=== PATIENT | female | born 1990 | race Caucasian/White ===

== ENCOUNTER 2017-05-12 22:46 | Emergency (ER) | payer OTHER ==
[2017-05-12] MEDS ORDERED: IPRATROPIUM-ALBUTEROL 3 ML NEB INHALATION STA (23:09)
[2017-05-12] MEDS ORDERED: predniSONE 20 MG TAB PO STA (23:09)
--- NOTE | 2017-05-12 23:18 | ED ---
General Adult HPI - General Chief complaint: Upper Respiratory Infection Stated complaint: TIMMY Time Seen by Provider: 05/12/17 22:59 Source: patient, RN notes reviewed Mode of arrival: ambulatory Limitations: no limitations - History of Present Illness Initial comments: Light and history of present illness this is a 27-year-old female here with complaint of bronchial asthma. Patient reports that she was treated with prednisone and amoxicillin several weeks ago. Several updrafts prior to coming in. The patient is breast-feeding. She states that her [employer] sent low-dose prednisone's okay while breast-feeding. We've her. No productive cough. [facility] and the day before and was reported to be negative by patient. - Related Data Home Medications Medication Instructions Recorded Confirmed Iln-Vckg-Rzuou Acid 1 each PO DAILY 11/15/13 11/17/13 [-U Capsule] Previous Rx's Medication Instructions Recorded predniSONE 10 mg PO DAILY #5 tab 05/12/17 Allergies Allergy/AdvReac Type Severity Reaction Status Date / Time No Known Allergies Allergy Verified 05/12/17 22:50 Review of Systems ROS Statement: Those systems with pertinent positive or pertinent negative responses have been documented in the HPI. reView of systems patient denies any visual acuity changes no sore throat no headache no chest pain she is short of breath from asthma-type symptoms. Currently no wheezing. She had an updraft just prior to coming to the ER. No abdominal pain no nausea no vomiting or diarrhea. No neuro deficits complained of. All systems are reviewed Past medical problems bronchial asthma. Surgeries adenoids and breast biopsy which is benign. Family history cancers include breast and colon cancer. Patient has seasonal ALLERGIES. Denies smoking joints alcohol occasionally socially. Currently breast-feeding. ROS Other: All systems not noted in ROS Statement are negative. Past Medical History Past Medical History: Asthma Additional Past Medical History / Comment(s): cystic fibrosis carrier History of Any Multi-Drug Resistant Organisms: None Reported Past Surgical History: Adenoidectomy Additional Past Surgical History / Comment(s): incisional biopsy-1 yr ago Past Psychological History: No Psychological Hx Reported Smoking Status: Never smoker Past Alcohol Use History: None Reported Past Drug Use History: None Reported General Exam - General Exam Comments Initial Comments: General: The patient is awake and alert, here because of bronchial asthma-type of problems. Pressure 98.5 pulse 106 respiratory rate 20 pulse ox on percent room air blood pressure 120/57 Eye: Pupils are equal, round and reactive to light, extra-ocular movements are intact ; there is normal conjunctiva bilaterally. No signs of icterus. Ears, nose, mouth and throat: There are moist mucous membranes and no oral lesions. Neck: The neck is supple, there is no tenderness , no anterior cervical lymphadenopathy, thyroid not enlarged Cardiovascular: There is a regular rate and rhythm. No murmur, rub or gallop is appreciated. Respiratory: Lungs are clear to auscultation, respirations are non-labored, breath sounds are equal. No wheezes, stridor, rales, or rhonchi. No wheezing. Skin: Skin is warm and dry and no rashes or lesions are noted. Limitations: no limitations Course Vital Signs 05/12/17 05/12/17 05/12/17 22:47 23:16 23:30 Temperature 98.5 F Pulse Rate 106 H 92 88 Respiratory 20 Rate Blood Pressure 120/57 O2 Sat by Pulse 100 Oximetry Medical Decision Making - Medical Decision Making Rectal decision making; the patient's here because of bronchial asthma-type symptoms. While in emergency room patient received a DuoNeb which improved her breathing. She be placed on prednisone 10 mg 1 tablet daily. Advised to continue with home medications follow-up with family physician. Disposition Clinical Impression: Asthmatic bronchitis Disposition: HOME SELF-CARE Condition: Fair Instructions: Reactive Airways Disease (ED) Additional Instructions: With home medications for breathing, take prednisone 10 mg daily for 5 days. Follow-up with year Prescriptions: predniSONE 10 mg PO DAILY #5 tab Referrals: Qiana Landrum MD [Primary Care Provider] - 1-2 days Time of Disposition: 23:53
[2017-05-13 00:04] VITALS: BP 109/53; PULSE 85; RESP 18; TEMP 97.2
== END 2017-05-13 00:04 | disposition home or self-care (01) ==
LOC: EC 22:46
DX: J45.909 Unspecified asthma, uncomplicated (principal); Z79.899 Other long term (current) drug therapy
CPT/HCPCS: 99283; 94640; J7512